=== PATIENT | female | born 1955 | race Caucasian/White ===

== ENCOUNTER → 2016-11-11 | Outpatient (CLI) | payer BC ==
[2016-11-11 07:28] LABS: EKG EKG PERFORMED
[2016-11-11 08:01] LABS: CH 28.8; CHCM 32.3; HCT 38.8 % (34.0-46.0); HDW 2.61; HGB 12.7 gm/dL (11.4-16.0); MCH 29.2 pg (25.0-35.0); MCHC 32.7 g/dL (31.0-37.0); MCV 89.6 fL (80.0-100.0); Mean Platelet Volume 7.1; RBC 4.34 m/uL (3.80-5.40); RDW 14.5 % (11.5-15.5); WBC 5.4 k/uL (3.8-10.6)
[2016-11-11 08:04] LABS: Appearance,Urine Cloudy (Clear); Bilirubin,Urine Negative (Negative); Glucose,Urine (UA) Negative (Negative); Ketones,Urine Negative (Negative); Leukocyte Esterase,Urine Negative (Negative); Mucus,Urine Rare /hpf; Nitrite,Urine Negative (Negative); Particle Count 8759; Protein,Urine Negative (Negative); RBC,Urine 1 /hpf (0-5); Specific Gravity,Urine 1.012 (1.001-1.035); UA Billing (MACRO vs. MICRO) MICRO; Urobilinogen,Urine <2.0 mg/dL (<2.0); WBC,Urine 3 /hpf (0-5)
[2016-11-11 08:06] LABS: Prothrombin Time 9.8 sec (9.0-12.0)
[2016-11-11 08:19] LABS: ALT 38 U/L (9-52); AST 33 U/L (14-36); Alkaline Phosphatase 89 U/L (38-126); Anion Gap 10 mmol/L; Blood Urea Nitrogen 12 mg/dL (7-17); Calcium 9.1 mg/dL (8.4-10.2); Carbon Dioxide 27 mmol/L (22-30); Chloride 107 mmol/L (98-107); Glucose 92 mg/dL (74-99); Non-African American GFR(MDRD) >60 (>60 ml/min/1.73 sqM); Potassium 4.5 mmol/L (3.5-5.1); Sodium 144 mmol/L (137-145); Total Bilirubin 0.4 mg/dL (0.2-1.3); Total Protein 7.2 g/dL (6.3-8.2)
== END | disposition home or self-care (01) ==
LOC: LABPAT 07:10
PROVIDERS: ATTEND Orthopaedic Surgery
DX: Z01.810 Encounter for preprocedural cardiovascular examination (principal); Z01.812 Encounter for preprocedural laboratory examination
CPT/HCPCS: 80053; 81001; 85027; 85610; 85730; 86850; 86900; 86901; 87070; 93005

== ENCOUNTER 2016-11-20 10:34 | Observation (INO) | payer BC ==
[2016-11-14 11:31] VITALS: BMI 30.7
[~2016-11-20 10:34] MED LIST: ACETAMINOPHEN TAB 500 MG TAB PO ONE; LIDOCAINE 1% 20 ML VIAL (10MG/ML) FOR IV START INTRADERMA PRN; MELOXICAM 7.5 MG TAB PO ONE; ONDANSETRON 4 MG/2 ML VIAL IVP ONE; TRANEXAMIC ACID 1,000 MG in SODIUM CHLORIDE 0.9% 100 ML IVPB ONE; ceFAZolin 2 GM in SODIUM CHLORIDE 0.9% 100 ML IVPB ONE; fentaNYL (PF) 50 MCG/ML 2 ML AMP IV PRN
[2016-11-20] MEDS ORDERED: DEXAMETHASONE SOD PHOSPHATE 10 MG/ML 1 ML VIAL IV STA (11:40)
[2016-11-20 11:41] LABS: Glucose,Whole Blood 116 mg/dL (75-99)
[2016-11-20] MEDS: LACTATED RINGERS 1,000 ML IV SCH (11:43)
[2016-11-20] MEDS ORDERED: MIDAZOLAM (PF) 1 MG/ML 5 ML VIAL IV STA ×2 (11:45)
[2016-11-20] MEDS ORDERED: MIDAZOLAM 2 MG/2 ML VIAL IV ONE ×2 (11:47→11:58)
[2016-11-20] MEDS ORDERED: ROPIVACAINE 246.25 MG, EPINEPHrine 0.5 MG, KETOROLAC 30 MG, cloNIDine HCL/PF 80 MCG, WA... MISCELLANE ONE ×5 (11:49)
[2016-11-20] MEDS ORDERED: hydrALAZINE HCL 20 MG/ML 1 ML VIAL IM STA ×2 (12:36→12:41)
[2016-11-20] MEDS ORDERED: LISINOPRIL 10 MG TAB PO STA (12:42)
[2016-11-20 12:53] VITALS: RESP 16
[2016-11-20] MEDS ORDERED: LACTATED RINGERS 1,000 ML IV ONE (12:53)
[2016-11-20 13:34] LABS: Basophils % (A) 1 %; CH 28.5; CHCM 31.5; Eosinophils % (A) 1 %; HCT 40.7 % (34.0-46.0); HDW 2.42; HGB 13.2 gm/dL (11.4-16.0); Luc # (Auto) 0.09; Luc % (Auto) 1; Lymphocytes # (A) 0.9 k/uL (1.0-4.8); Lymphocytes % (A) 11 %; MCH 29.4 pg (25.0-35.0); MCHC 32.3 g/dL (31.0-37.0); MCV 90.9 fL (80.0-100.0); Mean Platelet Volume 7.8; Monocytes # (A) 0.2 k/uL (0-1.0); Monocytes % (A) 2 %; Neutrophils # (A) 7.1 k/uL (1.3-7.7); Neutrophils % (A) 85 %; RBC 4.48 m/uL (3.80-5.40); RDW 14.3 % (11.5-15.5); WBC 8.3 k/uL (3.8-10.6); WBC (Perox) 8.71
[2016-11-20 13:37] LABS: ALT 32 U/L (9-52); AST 30 U/L (14-36); Alkaline Phosphatase 100 U/L (38-126); Anion Gap 11 mmol/L; Blood Urea Nitrogen 10 mg/dL (7-17); Carbon Dioxide 25 mmol/L (22-30); Chloride 106 mmol/L (98-107); Glucose 119 mg/dL (74-99); Non-African American GFR(MDRD) >60 (>60 ml/min/1.73 sqM); Sodium 142 mmol/L (137-145); Total Bilirubin 0.6 mg/dL (0.2-1.3); Total Protein 7.5 g/dL (6.3-8.2)
[2016-11-20] MEDS ORDERED: cloNIDine HCL 0.1 MG TAB PO PRN (14:16)
[2016-11-20] MEDS ORDERED: ALPRAZolam 0.25 MG TAB PO PRN (14:16)
[2016-11-20] MEDS ORDERED: TEMAZEPAM 15 MG CAP PO PRN (14:16)
[2016-11-20] MEDS ORDERED: hydrALAZINE HCL 20 MG/ML 1 ML VIAL IVP PRN (14:16)
[2016-11-20 14:50] LABS: Appearance,Urine Clear (Clear); Bilirubin,Urine Negative (Negative); Glucose,Urine (UA) Negative (Negative); Ketones,Urine 1+ (Negative); Leukocyte Esterase,Urine Negative (Negative); Nitrite,Urine Negative (Negative); Protein,Urine Negative (Negative); Specific Gravity,Urine 1.007 (1.001-1.035); UA Billing (MACRO vs. MICRO) CHEM; Urobilinogen,Urine <2.0 mg/dL (<2.0)
[2016-11-20] MEDS: METOPROLOL TARTRATE 25 MG TAB PO SCH ×2 (14:54→20:33)
[2016-11-20] MEDS: ASPIRIN 81 MG CHEW PO SCH (14:54)
--- NOTE | 2016-11-20 16:19 | HP ---
DATE OF ADMISSION: 11/20/2016 CHIEF COMPLAINT: Hypertension. HISTORY OF PRESENT ILLNESS: This 61-year-old woman with a past medical history of hypertension, hyperlipidemia, history of DJD, history of migraine, anxiety, being followed by Dr. Tellez in the outpatient setting, was slated to have hip arthroplasty today. In the preoperative suite the patient became diaphoretic. Patient also was found to have extremely elevated blood pressures, in the ranges of 200/108. After blood pressure medications, the blood pressure slightly improved to 176/103, and the patient has been admitted for further evaluation and treatment. There is no history of any fever, rigor, chills, no history of headache, loss of consciousness, seizures, no history of chest pain, palpitations, hematochezia, melena at this time. PAST MEDICAL HISTORY: 1. History of hypertension. 2. Hyperlipidemia. 3. History of DJD. 4. History of migraine. 5. Kidneys history. 6. Seasonal allergies. 7. History of anxiety. 8. DJD. MEDICATIONS PRIOR TO ADMISSION: 1. Tylenol 325 mg q.4 p.r.n. 2. Tylenol 650 q.6 p.r.n. 3. Coenzyme Q 100 mg p.o. daily. 4. [place]-3 fatty acids 1 p.o. daily. 5. Multivitamin 1 p.o. daily. 6. Aspirin 81 mg daily. 7. Zocor 40 mg p.o. daily. 8. Zestril 10 mg p.o. daily. ALLERGIES: PERFUME, MORPHINE. FAMILY HISTORY: History of myocardial infarction. Mother at the age of 62. SOCIAL HISTORY: No history of smoking. No history of alcohol intake. REVIEW OF SYSTEMS: ENT: No diminishing hearing. No diminished vision. CARDIOVASCULAR: As mentioned earlier. RESPIRATORY: As mentioned earlier. GI: No nausea. : No dysuria. NERVOUS SYSTEM: No numbness or weakness. ALLERGY/IMMUNOLOGY: No asthma, hayfever. MUSCULOSKELETAL: As mentioned earlier. HEMATOLOGY/ONCOLOGY: No history of anemia. ENDOCRINE: As mentioned earlier. CONSTITUTIONAL: As mentioned earlier. DERMATOLOGY: Negative. PSYCHIATRY: As mentioned earlier. PHYSICAL EXAMINATION: Patient is alert and oriented x3. The pulse is 97, blood pressure 178/102, respiration 16, temperature normal, pulse ox 98% on room air. HEENT: Conjunctivae normal. Oral mucosa moist. NECK: No jugular venous distention. No carotid bruit. No lymph node enlargement. CARDIOVASCULAR SYSTEM: S1, S2 muffled. No S3. No S4. RESPIRATORY SYSTEM: Breath sounds diminished at the bases. No rhonchi. No crackles. ABDOMEN: Soft, nontender. No mass palpable. LEGS: No edema. No swelling. NERVOUS SYSTEM: Higher functions as mentioned earlier. Moves all 4 limbs. No focal motor or sensory deficit. LYMPHATICS: No lymph node palpable in neck, axillae or groin. SKIN: No ulcer, rash, bleeding. Labs at this time show CBC within normal limits. Glucose 119. ASSESSMENT: 1. Accelerated hypertension with hypertensive urgency. 2. Increased random blood sugar. 3. History of essential hypertension. 4. Hyperlipidemia. 5. History of degenerative joint disease. 6. History of migraines. 7. History of kidney stones. 8. Seasonal allergies. 9. History of anxiety not otherwise specified. RECOMMENDATIONS AND DISCUSSION: In this 61-year-old woman who presented with multiple complex medical issues, we will monitor the patient closely, continue the current medication, continue symptomatic treatment. I recommend initiating beta blockers. Increase the dose of MEDHAT inhibitors. I would also recommend a cardiology consultation. Further recommendations to follow. Possible stress test. A copy of this dictation is being forwarded to Dr. Jeff Tellez, who is the primary physician. I would also recommend UA with micro.
[2016-11-20] MEDS: ACETAMINOPHEN TAB 325 MG TAB PO PRN (17:06)
[2016-11-20] MEDS: LISINOPRIL 10 MG TAB PO SCH (20:33)
[2016-11-21 06:41] LABS: Basophils % (A) 0 %; CH 28.5; CHCM 32.2; Eosinophils % (A) 0 %; HCT 41.5 % (34.0-46.0); HDW 2.42; HGB 13.2 gm/dL (11.4-16.0); Luc % (Auto) 1; Lymphocytes # (A) 1.7 k/uL (1.0-4.8); Lymphocytes % (A) 19 %; MCH 28.2 pg (25.0-35.0); MCHC 31.8 g/dL (31.0-37.0); MCV 88.9 fL (80.0-100.0); Mean Platelet Volume 7.7; Monocytes # (A) 0.5 k/uL (0-1.0); Monocytes % (A) 6 %; Neutrophils # (A) 6.5 k/uL (1.3-7.7); Neutrophils % (A) 74 %; RBC 4.67 m/uL (3.80-5.40); RDW 14.3 % (11.5-15.5); WBC 8.8 k/uL (3.8-10.6); WBC (Perox) 8.87
[2016-11-21 07:05] LABS: Anion Gap 14 mmol/L; Blood Urea Nitrogen 15 mg/dL (7-17); Calcium 9.3 mg/dL (8.4-10.2); Carbon Dioxide 23 mmol/L (22-30); Chloride 101 mmol/L (98-107); Glucose 96 mg/dL (74-99); Non-African American GFR(MDRD) >60 (>60 ml/min/1.73 sqM); Potassium 3.9 mmol/L (3.5-5.1); Sodium 138 mmol/L (137-145)
[2016-11-21] MEDS ORDERED: PANTOPRAZOLE 40 MG TABLET PO SCH (07:30)
[2016-11-21 07:52] VITALS: BP 141/84; PULSE 73; TEMP 98.2
[2016-11-21] MEDS: LISINOPRIL 10 MG TAB PO SCH (08:15)
[2016-11-21] MEDS: ASPIRIN 81 MG CHEW PO SCH (08:15)
[2016-11-21] MEDS: ACETAMINOPHEN TAB 325 MG TAB PO PRN (08:16)
[2016-11-21] MEDS: METOPROLOL TARTRATE 25 MG TAB PO SCH (08:16)
[2016-11-21] MEDS ORDERED: NON-FORMULARY DRUG (Omega-3 Fatty Acids/Fish Oil [Fish Oil 1,000 Mg Softgel] 1 EACH) PO SCH (09:00)
[2016-11-21] MEDS ORDERED: ATORVASTATIN 20 MG TAB PO SCH (09:00)
[2016-11-21] MEDS ORDERED: LISINOPRIL 10 MG TAB PO SCH (09:00)
[2016-11-21] MEDS ORDERED: MULTIVITAMINS, THERA 1 EACH TAB PO SCH (12:00)
[2016-11-21] MEDS: LACTATED RINGERS 1,000 ML IV SCH (12:31)
--- NOTE | 2016-11-22 08:15 | DS ---
DATE OF ADMISSION: 11/20/2016 DATE OF DISCHARGE: 11/21/2016 FINAL DIAGNOSES: 1. Accelerated hypertension and hypertensive urgency, present on admission. 2. Increased random blood sugar. 3. History of essential hypertension. 4. Hyperlipidemia. 5. History of degenerative joint disease. 6. History of migraines. 7. History of kidney stones. 8. Seasonal allergies. 9. History of anxiety, not otherwise specified. 10. History of planning for hip replacement. DISCHARGE DISPOSITION: The patient will be discharged in a stable condition with guarded prognosis. HISTORY OF PRESENT ILLNESS: This is a 61-year-old woman with a past medical history of multiple medical problems admitted with hypertension during a preop check. The blood pressure was in the ranges of 200/108. Patient was treated symptomatically, improved significantly. Basic labs are negative. On exam, vitals are stable. CARDIOVASCULAR SYSTEM: S1, S2. ABDOMEN: Soft. NERVOUS SYSTEM: No focal deficits. DISCHARGED ADVICE: 1. Diet is cardiac. 2. Activity limited until followup. 3. No added-salt diet. Medications will be: 1. Tylenol 650 q.6 p.r.n. 2. Xanax 0.25 t.i.d. p.r.n. for anxiety. 3. Aspirin 81 mg p.o. daily. 4. Zestril 10 mg p.o. b.i.d. 5. Lopressor 25 mg p.o. b.i.d. 6. Multivitamin 1 p.o. daily. 7. [place]-3 fatty acid 1 p.o. daily. 8. Zocor 40 mg p.o. daily. 9. Coenzyme Q 100 mg p.o. daily. Follow up with as recommended. [facility]
== END 2016-11-21 13:39 | disposition home or self-care (01) ==
LOC: 2ORMAIN 10:34 → INTOOBSV 10:34 → 3OBS 14:02
PROVIDERS: ADMIT Hospitalist; ATTEND Hospitalist
DX: I16.0 Hypertensive urgency (principal); Z53.09 Procedure and treatment not carried out because of other contraindication; I10 Essential (primary) hypertension; E78.5 Hyperlipidemia, unspecified; M19.90 Unspecified osteoarthritis, unspecified site; F41.9 Anxiety disorder, unspecified; Z87.442 Personal history of urinary calculi; G43.909 Migraine, unspecified, not intractable, without status migrainosus; J30.2 Other seasonal allergic rhinitis; Z79.82 Long term (current) use of aspirin; Z79.899 Other long term (current) drug therapy; Z82.49 Family history of ischemic heart disease and other diseases of the circulatory system
CPT/HCPCS: 96372; 96374; 96375; 93005; 80053; 80048; 84484; 85025 ×2; 81003; 80306; G0378 ×2; G0379; J2250; J0171; J0360; J1100; J2405; J1885; J2795; J0735; 86850; 86900; 86901

== ENCOUNTER → 2017-01-27 | Outpatient (CLI) | payer BC ==
[2017-01-27 07:59] LABS: Appearance,Urine Cloudy (Clear); Bacteria,Urine Rare /hpf; Bilirubin,Urine Negative (Negative); CHCM 32.1; Glucose,Urine (UA) Negative (Negative); HDW 2.38; HGB 12.8 gm/dL (11.4-16.0); Ketones,Urine Negative (Negative); Leukocyte Esterase,Urine Negative (Negative); MCH 28.4 pg (25.0-35.0); MCHC 31.2 g/dL (31.0-37.0); Mean Platelet Volume 8.4; Mucus,Urine Rare /hpf; Nitrite,Urine Negative (Negative); Particle Count 1727; Protein,Urine Negative (Negative); RBC,Urine 1 /hpf (0-5); RDW 15.4 % (11.5-15.5); Specific Gravity,Urine 1.012 (1.001-1.035); Squamous Epithelial Cell,Urine <1 /hpf (0-4); UA Billing (MACRO vs. MICRO) MICRO; Urobilinogen,Urine <2.0 mg/dL (<2.0); WBC 6.8 k/uL (3.8-10.6); WBC,Urine 5 /hpf (0-5)
[2017-01-27 08:05] LABS: Partial Thromboplastin Time 25.9 sec (22.0-30.0); Prothrombin Time 9.8 sec (9.0-12.0)
[2017-01-27 08:14] LABS: ALT 36 U/L (9-52); AST 26 U/L (14-36); Alkaline Phosphatase 87 U/L (38-126); Anion Gap 11 mmol/L; Blood Urea Nitrogen 10 mg/dL (7-17); Calcium 9.1 mg/dL (8.4-10.2); Carbon Dioxide 28 mmol/L (22-30); Chloride 105 mmol/L (98-107); Glucose 87 mg/dL (74-99); Non-African American GFR(MDRD) >60 (>60 ml/min/1.73 sqM); Potassium 4.4 mmol/L (3.5-5.1); Sodium 144 mmol/L (137-145); Total Bilirubin 0.6 mg/dL (0.2-1.3)
== END | disposition home or self-care (01) ==
LOC: LABPAT 07:06
PROVIDERS: ATTEND Orthopaedic Surgery
DX: Z01.818 Encounter for other preprocedural examination (principal); Z01.812 Encounter for preprocedural laboratory examination
CPT/HCPCS: 36415; 80053; 81001; 85027; 85610; 85730; 86850; 86900; 86901; 87070

== ENCOUNTER 2017-02-06 07:37 | Inpatient (IN) | payer BC ==
[~2017-02-06 07:37] MED LIST changes: +DEXAMETHASONE SOD PHOSPHATE 10 MG/ML 1 ML VIAL IV ONE; +HYDROmorphone 1 MG/ML 1 ML SYRINGE IVP PRN; -LIDOCAINE 1% 20 ML VIAL (10MG/ML) FOR IV START INTRADERMA PRN; -fentaNYL (PF) 50 MCG/ML 2 ML AMP IV PRN
[2017-02-06 08:39] VITALS: RESP 16
[2017-02-06] MEDS: LACTATED RINGERS 1,000 ML IV SCH ×2 (08:45→20:10)
[2017-02-06] MEDS ORDERED: LIDOCAINE 1% 20 ML VIAL (10MG/ML) FOR IV START INTRADERMA ONE (08:45)
[2017-02-06] MEDS ORDERED: ROPIVACAINE 246.25 MG, EPINEPHrine 0.5 MG, KETOROLAC 30 MG, cloNIDine HCL/PF 80 MCG, WA... MISCELLANE ONE ×5 (08:57)
[2017-02-06] MEDS ORDERED: SODIUM CHLORIDE 0.9% IRRIG 1,000 ML BTL IRRIGATION ONE (10:04)
[2017-02-06] MEDS ORDERED: SODIUM CHLORIDE 0.9% 100 ML BAG ONE (10:04)
[2017-02-06] MEDS ORDERED: HEPARIN SODIUM,PORCINE 10,000 UNIT/ML 1 ML VIAL ONE (10:04)
[2017-02-06] MEDS ORDERED: TRANEXAMIC ACID 1,000 MG/10 ML VIAL ONE (10:04)
[2017-02-06] MEDS ORDERED: MIDAZOLAM 2 MG/2 ML VIAL ONE (10:04)
[2017-02-06] MEDS ORDERED: PROPOFOL 10 MG/ML 20 ML VIAL IV ONE (10:04)
[2017-02-06] MEDS ORDERED: fentaNYL (PF) 50 MCG/ML 2 ML AMP ONE (10:04)
[2017-02-06] MEDS ORDERED: ceFAZolin 3,000 MG in SODIUM CHLORIDE 0.9% IRRIGATIO 3,000 ML IRRIGATION ONE (10:56)
[2017-02-06] MEDS ORDERED: LACTATED RINGERS 1,000 ML IV ONE (11:11)
--- NOTE | 2017-02-06 11:49 | P.OP ---
Date of Procedure: 02/06/17 Preoperative Diagnosis: Severe osteoarthritis right hip Postoperative Diagnosis: Severe osteoarthritis right hip Procedure(s) Performed: Right total hip arthroplasty with a direct anterior approach Implants: Wilhelm and nephew Polarstem size 1 standard Wilhelm & Nephew R3, 3 hole acetabular shell, 52 mm Wilhelm [employer] Nephew reflection 6.5 mm cancellus screw, 20 mm and 25 mm Wilhelm & Nephew R3, XLPE 20 acetabular liner Wilhelm & Nephew Oxinium femoral head 36 m, +0 All components were press-fit. The articulation is ceramic on polyethylene. Anesthesia: spinal Surgeon: Kd Carolina [employer] Pollution Compliance Inspector #1: Indigo Mcmanus Estimated Blood Loss (ml): 300 (118 returned with cell saver) Pathology: other (Femoral head) Condition: stable Disposition: PACU Indications for Procedure: After failure of conservative treatment we discussed the surgical and nonsurgical treatment options at length. Patient wishes to proceed with a total hip arthroplasty with a direct anterior approach. Complications specific to this procedure were discussed at length, including but not limited to infection, leg length discrepancy, dislocation, and nerve injury. Patient is aware of all these complications and informed consent was obtained Operative Findings: The operative findings are consistent with severe osteoarthritis of the right hip Description of Procedure: Patient was seen and evaluated in the preoperative area, consent was reviewed, and the surgical site was marked with a skin marker. Patient was then brought to the operating room and given prophylactic antibiotics intravenously. 1 g of Tranexamic acid was also given. A spinal anesthetic was administered by the anesthesia department. The patient was then placed on the [place] table with the bony prominences well-padded. The hip area was then prepped and draped in usual sterile fashion. A universal timeout was then performed, which confirmed the patient's name, surgical site, ALLERGIES, and procedure being performed. Next the incision site was located at 1 cm distal and 1 cm lateral to the anterior superior iliac spine. The skin and subcutaneous tissues were sharply incised. Incision was carefully dissected down to the fascia overlying the tensor fascia pancho muscle. This fascia was then incised in line with the incision. Next, using blunt finger dissection, the tensor fascia pancho muscle was dissected off its investing fascia. The muscle was then carefully retracted laterally with a cobra retractor over the lateral neck of the femur. Next, the circumflex vessels were identified and cauterized using the AquaMantis device. The anterior hip capsule was then exposed. The capsule was then opened and an inverted T fashion. Cobra retractors were then placed intracapsularly. The proximal femur was then visualized. The femoral neck was then osteotomized appropriate level above the lesser trochanter. Small amount of traction was placed with the [place] table. A small wedge of bone was then removed from the remaining femoral head. Next, using a corkscrew femoral head was easily removed from the acetabulum. On gross visual inspection, the femoral head had complete loss of articular cartilage in multiple periarticular osteophytes. Attention was then turned to the acetabulum. the acetabulum was exposed and any remaining labrum was excised. Sequential reaming of the acetabulum was performed using fluoroscopic guidance. When the appropriate size was reached, a trial was then placed. The position and fit of the trial was checked with fluoroscopy. The trial was then removed. Then, using fluoroscopic guidance, the final implant was impacted at 20 of anteversion and 40 of abduction, and fully seated in the acetabulum. 2 screws were then placed in the acetabulum. Again fluoroscopy was used to check position of the screws. Next, the liner was then impacted, with a 20 elevated liner located in the anterior superior quadrant. Component locking was confirmed. Attention was then directed to the femur. With the aid of the [place] table, the femur was externally rotated to approximately 130, extended, and abducted under the opposite leg. A side hook was then placed under the proximal femur, and the side hook elevator was used to elevate the proximal femur. Retractors were then placed. A capsular release was performed, as well as a release of the conjoined tendon, which afforded excellent visualization of the proximal femur. Next, a box osteotome was used to lateralize the proximal femur. A skiver hand was then used to locate the femoral canal. Sequential broaching was then performed with appropriate size which afforded excellent fixation in the proximal femur. A trial was then placed with appropriate head and neck, and the hip was gently reduced with the aid of the [place] table. Fluoroscopy was then used to check position of the components, as well as to ensure equal leg lengths. The hip was then gently dislocated and the trials were then removed. Final implants were then impacted and the hip was again reduced. Final fluoroscopic x-rays confirmed that the components were in anatomic position, as well as equal leg lengths. The hip was also taken through range of motion, and found to be stable. The hip was then copiously irrigated with antibiotic solution with pulsatile lavage. The hip was then irrigated with Irrisept solution. The soft tissues were then injected with a ropivacaine solution, which consisted of 246.25 mg of ropivacaine, 0.5 mg of epinephrine, 30 mg of Toradol, 80 g of clonidine, and 48.45 mL of sterile water, for a total of 100 mL of fluid injected. A second dose of 1 g of Tranexamic acid was also given. the fascia was then closed with 2-0 strata fix suture. The subcutaneous tissue was closed with 3-0 Vicryl. The subcuticular tissue was closed with 3-0 strata fix suture. The skin was then closed with Dermabond tape. The patient was then transferred to the recovery room in stable condition. The patient care nursing assistant JORGITO Salinas was required due to the complexity of surgery, and the need for skilled certified surgical assistant for positioning, draping, exposure, retraction, and closure of the wound.
[2017-02-06] MEDS ORDERED: DIAZEPAM 5 MG TAB PO PRN ×2 (11:59)
[2017-02-06] MEDS ORDERED: MAGNESIUM HYDROXIDE 2,400 MG/10 ML CUP PO PRN (11:59)
[2017-02-06] MEDS ORDERED: NALOXONE 0.4 MG/ML 1 ML VIAL IV PRN (11:59)
[2017-02-06] MEDS ORDERED: HYDROmorphone 1 MG/ML 1 ML SYRINGE IVP PRN ×3 (11:59)
[2017-02-06] MEDS ORDERED: ONDANSETRON 4 MG/2 ML VIAL IVP PRN (11:59)
[2017-02-06] MEDS ORDERED: hydrOXYzine PAMOATE 25 MG CAP PO PRN (11:59)
[2017-02-06] MEDS ORDERED: HYDROcodone/APAP 5-325MG 1 EACH TAB PO PRN (11:59)
--- NOTE | 2017-02-06 13:18 | XR ---
EXAMINATION TYPE: XR Hip Limited RT DATE OF EXAM: 02/06/2017 COMPARISON: NONE HISTORY: Postop right hip TECHNIQUE: One view submitted. FINDINGS: There is a prosthetic hip in near anatomic alignment. There is soft tissue edema and emphysema. IMPRESSION: 1. Postoperative change. Appears in near-anatomic alignment.
--- NOTE | 2017-02-06 14:21 | FL ---
Fluoroscopy HISTORY: Right hip placement 24 seconds fluoroscopy time supplied to the referring clinician. 2 intraoperative C-arm images docum ent the procedure. See dictated report from orthopedic surgery.
--- NOTE | 2017-02-06 14:21 | XR ---
Limited right hip HISTORY: Right hip replacement 2 intraoperative C-arm images document the procedure.
[2017-02-06] MEDS: ceFAZolin 2 GM in SODIUM CHLORIDE 0.9% 100 ML IVPB SCH (17:48)
[2017-02-06] MEDS: HYDROcodone/APAP 5-325MG 1 EACH TAB PO PRN (17:52)
[2017-02-06] MEDS: SODIUM CHLORIDE 0.9% 1,000 ML IV SCH ×2 (20:07→20:09)
[2017-02-06] MEDS: ASPIRIN 325 MG TAB PO SCH (20:08)
[2017-02-06] MEDS: SENNOSIDES-DOCUSATE SODIUM 1 EACH TAB PO SCH (20:08)
[2017-02-06] MEDS ORDERED: LACTATED RINGERS 500 ML IV SCH (22:00)
[2017-02-06] MEDS ORDERED: LACTATED RINGERS 250 ML IV SCH (23:45)
[2017-02-07] MEDS: ceFAZolin 2 GM in SODIUM CHLORIDE 0.9% 100 ML IVPB SCH (01:22)
[2017-02-07 07:44] LABS: Basophils % (A) 0 %; CH 29.3; CHCM 31.9; Eosinophils % (A) 0 %; HCT 32.9 % (34.0-46.0); HDW 2.37; HGB 10.4 gm/dL (11.4-16.0); Luc # (Auto) 0.09; Luc % (Auto) 1; Lymphocytes # (A) 2.2 k/uL (1.0-4.8); Lymphocytes % (A) 22 %; MCH 29.2 pg (25.0-35.0); MCHC 31.7 g/dL (31.0-37.0); MCV 92.3 fL (80.0-100.0); Monocytes # (A) 0.5 k/uL (0-1.0); Monocytes % (A) 5 %; Neutrophils # (A) 7.4 k/uL (1.3-7.7); Neutrophils % (A) 72 %; RBC 3.57 m/uL (3.80-5.40); RDW 15.4 % (11.5-15.5); WBC 10.2 k/uL (3.8-10.6); WBC (Perox) 10.79
[2017-02-07] MEDS: ASPIRIN 325 MG TAB PO SCH ×2 (07:52→20:59)
[2017-02-07] MEDS: HYDROcodone/APAP 5-325MG 1 EACH TAB PO PRN (07:53)
[2017-02-07] MEDS: MELOXICAM 7.5 MG TAB PO SCH (07:53)
--- NOTE | 2017-02-07 09:28 | P.DS ---
Providers Date of admission: 02/06/17 08:08 Expected date of discharge: 02/07/17 Attending physician: Kd Carolina Consults: 02/06/17 11:59 Consult Physician Routine Consulting Provider: Kirk Sun Consult Reason/Comments: medical management Do you want consulting provider notified?: Yes Primary care physician: Stated None - Discharge Diagnosis(es) (1) S/P total hip arthroplasty Current Visit: Yes Status: Acute (2) Primary osteoarthritis of right hip Current Visit: Yes Status: Acute Hospital Course: This is a 61-year-old female with known history of degenerative arthritis of the right hip. The patient presents for evaluation. After discussion and consideration patient elects to proceed with total hip arthroplasty. The patient is seen preoperatively by Dr. Carolina and cleared for surgery. Patient is admitted to [facility] on 02/06/2017 for total hip arthroplasty. The procedures performed without complication or sequelae. The patient is doing well postoperatively. Labs and vital signs are stable on day of discharge. On day of discharge patient's hip incision is healing well. There is minimal erythema. There is no drainage noted at this time. There is minimal soft tissue swelling to the hip and thigh. Patient has full foot and ankle motion without difficulty or pain. Neurovascular status to the right lower extremity is intact. Patient is discharged home in good condition.Please see med rec for accurate list of home medications. Plan - Discharge Summary New Discharge Prescriptions: New Aspirin 325 mg PO BID #60 tab HYDROcodone/APAP 5-325MG [Ollie 5-325] 1 - 2 tab PO Q4-6H PRN #90 tab PRN Reason: Pain Sennosides-Docusate Sodium [Senokot-S] 1 tab PO BID #60 tablet No Action Simvastatin [Zocor] 40 mg PO HS [place]-3 Fatty Acids/Fish Oil [Fish Oil 1,000 mg Softgel] 1 cap PO DAILY #0 Multivitamins, Thera [Multivitamin (formulary)] 1 tab PO DAILY Ubidecarenone [Co Q-10] 100 mg PO DAILY Acetaminophen [Tylenol Arthritis] 650 mg PO Q6H PRN PRN Reason: Pain Acetaminophen [Tylenol] 325 mg PO Q4H ALPRAZolam [Xanax] 0.25 mg PO TID PRN #20 tab PRN Reason: Anxiety Lisinopril [Zestril] 10 mg PO BID #60 tab Metoprolol Tartrate [Lopressor] 25 mg PO BID #60 tab Calcium Carbonate [Tums] 1 - 2 tab PO DAILY Fluticasone Propionate 1 spray NASAL DAILY FLUoxetine HCL [PROzac] 10 mg PO QAM Optic A 1 drop BOTH EYES DIRECTED Aspirin [Adult Low Dose Aspirin EC] 81 mg PO DAILY Discharge Medication List Simvastatin [Zocor] 40 mg PO HS 03/19/14 [History] Multivitamins, Thera [Multivitamin (formulary)] 1 tab PO DAILY 12/10/15 [History ] [place]-3 Fatty Acids/Fish Oil [Fish Oil 1,000 mg Softgel] 1 cap PO DAILY #0 04/16 [History] Acetaminophen [Tylenol Arthritis] 650 mg PO Q6H PRN 11/14/16 [History] Ubidecarenone [Co Q-10] 100 mg PO DAILY 11/14/16 [History] Acetaminophen [Tylenol] 325 mg PO Q4H 11/20/16 [History] ALPRAZolam [Xanax] 0.25 mg PO TID PRN #20 tab 11/21/16 [Rx] Lisinopril [Zestril] 10 mg PO BID #60 tab 11/21/16 [Rx] Metoprolol Tartrate [Lopressor] 25 mg PO BID #60 tab 11/21/16 [Rx] Calcium Carbonate [Tums] 1 - 2 tab PO DAILY 02/05/17 [History] FLUoxetine HCL [PROzac] 10 mg PO QAM 02/05/17 [History] Fluticasone Propionate 1 spray NASAL DAILY 02/05/17 [History] Optic A 1 drop BOTH EYES DIRECTED 02/05/17 [History] Aspirin [Adult Low Dose Aspirin EC] 81 mg PO DAILY 02/06/17 [History] Aspirin 325 mg PO BID #60 tab 02/07/17 [Rx] HYDROcodone/APAP 5-325MG [Ollie 5-325] 1 - 2 tab PO Q4-6H PRN #90 tab 02/07/17 [ Rx] Sennosides-Docusate Sodium [Senokot-S] 1 tab PO BID #60 tablet 02/07/17 [Rx] Follow up Appointment(s)/Referral(s): Kd Carolina DO [Doctor of Osteopathic Medicine] - 2 Weeks Activity/Diet/Wound Care/Special Instructions: Weightbearing as tolerated with walker May shower after 2 days if no drainage from the incision Follow-up with [facility] in 2 weeks with any questions or concerns Discharge Disposition: HOME WITH HOME HEALTH SERVICES
--- NOTE | 2017-02-07 16:22 | P.CONS ---
History of Present Illness - Reason for Consult Consult date: 02/07/17 Medical management Requesting physician: Kd Carolina - Chief Complaint Right hip surgery - History of Present Illness Consultation: This is a very pleasant 61-year-old patient of Dr. Tellez was undergone a right total hip arthroplasty. Postprocedure sitting on the chair comfortable. No chest pain or short of breath no nausea morning. Denies any cardiac history. Patient's chronic stable medical conditions include GERD, hypertension , hyperlipidemia, prostatitis, anxiety. Did tolerate his breakfast. GEN.: None EYES: None HEENT: None NECK: None RESPIRATORY: None CARDIOVASCULAR: None GASTROINTESTINAL: Heartburn] GENITOURINARY: None MUSCULOSKELETAL: Pain in the joints LYMPHATICS: None HEMATOLOGICAL: None PSYCHIATRY: None NEUROLOGICAL: None Past medical history: GERD, hypertension, hyperlipidemia, osteoarthritis, anxiety. Past medical history: GERD, hypertension, hyperlipidemia, [place] arthritis, anxiety, Past surgical history: Left total hip arthroplasty, colonoscopy Home medications: reviewed in the computer ALLERGIES: Perfume, morphine VITAL SIGNS: 98 2, 82, 16, 1:30/74, 97% room air GENERAL: Average built, sitting up, comfortable. EYES: Pupils equal. Conjunctiva normal. HEENT: External appearance of nose and ears normal, oral cavity grossly normal. NECK: JVD not raised; masses not palpable. HEART: First and second heart sounds are normal; no edema. LUNGS: Respiratory rate normal; clear to auscultation. ABDOMEN: Soft, nontender, liver spleen not palpable, no masses palpable. LYMPHATICS: No lymph nodes palpable in the axilla and neck. PSYCH: Alert and oriented x3; mood and affect normal. NEUROLOGICAL: Cranial nerves grossly intact; no facial asymmetry, power and sensation grossly intact. Musculoskeletal: Dressing over the right hip Investigation: White count 10.2, hemoglobin 10.4 Hemoglobin was 12.8 down 01/27/2017 Assessment: Right total hip arthroplasty -GERD -Essential hypertension -Hyperlipidemia -Primary osteoarthritis multiple joints -Anxiety not otherwise specified -Acute postop blood loss anemia as expected from surgery Plan: Home medications are resumed. Patient getting aspirin 325 mg by mouth twice a day for DT prophylaxis. Care was discussed with the patient. Patient should follow with Dr. Tellez upon discharge. Thank you Dr. Carolina Past Medical History Past Medical History: GERD/Reflux, Hyperlipidemia, Hypertension, Osteoarthritis (OA) Additional Past Medical History / Comment(s): SURGERY THAT WAS SCHEDULED FOR , WAS CANCELLED DUE TO HIGH BP 200/100 (PER PATIENT). HX: migraines, constipation, hx kidney stones, sinus infection, recent ear infection-rt ear tx with ABX, arthritis in low back. History of Any Multi-Drug Resistant Organisms: None Reported Past Surgical History: Joint Replacement Additional Past Surgical History / Comment(s): 12/13/15 Total L hip arthroplasty -anterior approach. Other surgical hx; colonoscopy Past Anesthesia/Blood Transfusion Reactions: No Reported Reaction Past Psychological History: Anxiety Additional Psychological History / Comment(s): Pt states she lives alone. She uses a cane occasionally. She drives. Smoking Status: Never smoker Past Alcohol Use History: None Reported Past Drug Use History: None Reported - Past Family History Mother Family Medical History: Myocardial Infarction (WA) Additional Family Medical History / Comment(s): Mother of a WA at the age of 62 yrs. Father Family Medical History: Myocardial Infarction ([place]) Additional Family Medical History / Comment(s): Father of a WA at the age of 69yrs. Medications and Allergies Home Medications Medication Instructions Recorded Confirmed Type Simvastatin [Zocor] 40 mg PO HS 03/19/14 02/06/17 History Multivitamins, Thera [Multivitamin 1 tab PO DAILY 12/10/15 02/06/17 History (formulary)] [place]-3 Fatty Acids/Fish Oil [Fish 1 cap PO DAILY #0 12/10/15 02/06/17 History Oil 1,000 mg Softgel] Acetaminophen [Tylenol Arthritis] 650 mg PO Q6H PRN 11/14/16 02/06/17 History Ubidecarenone [Co Q-10] 100 mg PO DAILY 11/14/16 02/06/17 History Acetaminophen [Tylenol] 325 mg PO Q4H 11/20/16 02/06/17 History Calcium Carbonate [Tums] 1 - 2 tab PO DAILY 02/05/17 02/06/17 History FLUoxetine HCL [PROzac] 10 mg PO QAM 02/05/17 02/06/17 History Fluticasone Propionate 1 spray NASAL DAILY 02/05/17 02/06/17 History Optic A 1 drop BOTH EYES DIRECTED 02/05/17 02/06/17 History Allergies Allergy/AdvReac Type Severity Reaction Status Date / Time perfume Allergy Rash/Hives Verified 02/05/17 08:23 morphine AdvReac Itching Verified 02/05/17 08:23 Results CBC & Chem 7: 02/07/17 06:47
[2017-02-07] MEDS ORDERED: ACETAMINOPHEN TAB 325 MG TAB PO PRN (20:54)
[2017-02-07] MEDS: SENNOSIDES-DOCUSATE SODIUM 1 EACH TAB PO SCH (20:59)
[2017-02-07] MEDS: SODIUM CHLORIDE 0.9% 1,000 ML IV SCH (21:45)
[2017-02-08] MEDS: HYDROcodone/APAP 5-325MG 1 EACH TAB PO PRN (03:33)
[2017-02-08] MEDS: LACTATED RINGERS 1,000 ML IV SCH (04:55)
[2017-02-08 07:35] VITALS: BP 133/78; TEMP 98.5
[2017-02-08] MEDS: ASPIRIN 325 MG TAB PO SCH (08:38)
[2017-02-08] MEDS: MELOXICAM 7.5 MG TAB PO SCH (08:38)
[2017-02-08 15:21] VITALS: PULSE 87
--- NOTE | 2017-02-08 22:20 | PN ---
DATE OF SERVICE: 02/08/2017 PRESENTING COMPLAINT: Right hip surgery. INTERVAL HISTORY: Patient is status post right hip surgery, doing well. No chest pain or shortness of breath. Did work with therapy. Review of systems done for constitutional, cardiovascular, GI, pulmonary, musculoskeletal; relevant findings as above. Current medications are reviewed. On examination, temperature 98.5, pulse 96, respiration 16, blood pressure 133/ 78, pulse ox 95% on room air. GENERAL APPEARANCE: Sitting up on a chair. Comfortable. EYES: Pupils equal. Conjunctivae normal. NECK: JVD not raised. Mass not palpable. RESPIRATORY: Effort normal. LUNGS: Fair air entry. CARDIOVASCULAR: First and second sounds normal. No edema. ABDOMEN: Soft, non-tender. Liver and spleen not palpable. PSYCHIATRY: Alert and oriented x3. Mood and affect normal. INVESTIGATIONS: No blood work from today. ASSESSMENT: 1. Right total hip arthroplasty. 2. Gastroesophageal reflux disease. 3. Essential hypertension. 4. Hyperlipidemia. 5. Primary osteoarthritis of multiple joints. 6. Anxiety not otherwise specified. 7. Acute postoperative blood loss anemia, as expected from surgery. PLAN: Continue current medication and treatment plan. Care was discussed with the patient. Thank you, Dr. Carolina. [facility]
== END 2017-02-08 16:30 | disposition home health service (06) | DRG 470 ==
LOC: 2ORMAIN 08:08 → 3SUR 13:13
PROVIDERS: ADMIT Orthopaedic Surgery; ATTEND Orthopaedic Surgery
PROC: 0SR904A Replacement of Right Hip Joint with Ceramic on Polyethylene Synthetic Substitute, Uncemented, Open Approach (ICD-10-PCS; principal; 2017-02-06 09:45)
DX: M16.11 Unilateral primary osteoarthritis, right hip (principal); D62 Acute posthemorrhagic anemia; I95.9 Hypotension, unspecified; I10 Essential (primary) hypertension; E78.5 Hyperlipidemia, unspecified; F41.9 Anxiety disorder, unspecified; K21.9 Gastro-esophageal reflux disease without esophagitis; G43.909 Migraine, unspecified, not intractable, without status migrainosus; E66.9 Obesity, unspecified; Z68.30 Body mass index [BMI] 30.0-30.9, adult; Z79.82 Long term (current) use of aspirin; Z79.899 Other long term (current) drug therapy; Z88.5 Allergy status to narcotic agent; Z96.642 Presence of left artificial hip joint; Z82.49 Family history of ischemic heart disease and other diseases of the circulatory system
CPT/HCPCS: 73501; 85025; 86850; 86891; 86900; 86901; 88300

== ENCOUNTER → 2017-05-21 | Outpatient (CLI) | payer BC ==
--- NOTE | 2017-05-23 09:22 | MM ---
Reason for exam: screening (asymptomatic). Last mammogram was performed 1 year ago. History: Patient is postmenopausal and is nulliparous. Family history of breast cancer in aunt at age 50. Physical Findings: A clinical breast exam by your physician is recommended on an annual basis and results should be correlated with mammographic findings. MG Screening Mammo w CAD Bilateral CC and MLO view(s) were taken. Prior study comparison: May 19, 2016, bilateral MG screening mammo w CAD. May 08, 2015, bilateral MG screening mammo w CAD. The breast tissue is heterogeneously dense. This may lower the sensitivity of mammography. Finding: There are typically benign calcifications in both breasts, overall stable. No suspicious abnormality. ASSESSMENT: Benign, BI-RAD 2 RECOMMENDATION: Routine screening mammogram of both breasts in 1 year.
== END | disposition home or self-care (01) ==
LOC: RADMAMWWP 16:47
PROVIDERS: ATTEND Pediatrics
DX: Z12.31 Encounter for screening mammogram for malignant neoplasm of breast (principal)

== ENCOUNTER → 2017-12-10 | Outpatient (CLI) | payer BC ==
--- NOTE | 2017-12-10 14:28 | US ---
EXAMINATION TYPE: US carotid duplex BILAT DATE OF EXAM: 12/10/2017 COMPARISON: NONE CLINICAL HISTORY: R40.0 SLEEPINESS,R55 SYNCOPY. Daytime sleepiness, lightheaded EXAM MEASUREMENTS: RIGHT: Peak Systolic Velocity (PSV) cm/sec ----- Right CCA: 79.8 ----- Right ICA: 111.7 ----- Right ECA: 78.7 ICA/CCA ratio: 1.4 RIGHT: End Diastole cm/sec ----- Right CCA: 17.1 ----- Right ICA: 33.6 ----- Right ECA: 9.5 LEFT: Peak Systolic Velocity (PSV) cm/sec ----- Left CCA: 76.2 ----- Left ICA: 131.8 ----- Left ECA: 86.4 ICA/CCA ratio: 1.7 LEFT: End Diastole cm/sec ----- Left CCA: 24.8 ----- Left ICA: 43.0 ----- Left ECA: 12.8 VERTEBRALS (direction of flow): Right Vertebral: Antegrade Left Vertebral: Antegrade Rhythm: Normal Mild plaque bilateral bifurcations. Tortuous left ICA. IMPRESSION: 1. Atheromatous plaquing. There is mild elevation of the left internal carotid artery velocity compat ible with a stenosis between 50 and 69%. Criteria for Assigning % of Stenosis / Diameter reduction (Estimation based on the indirect measurements of the internal carotid artery velocities (ICA PSV). 1. Normal (no stenosis)=ICA PSV < 125 cm/s: ratio < 2.0: ICA EDV<40 cm/s. 2. Less than 50% stenosis=ICA PSV < 125 cm/s: ratio < 2.0: ICA EDV<40 cm/s. 3. 50 to 69% stenosis=ICA PSV of 125 to 230 cm/s: ratio 2.0 ? 4.0: ICA EDV 40-100 cm/s. 4. Greater than 70% stenosis to near occlusion= ICA PSV > 230 cm/s: ratio > 4.0: ICA EDV > 100 cm/s. 5. Near occlusion= ICA PSV velocities may be low or undetectable: variable ratio and ICA EDV. 6. Total occlusion=unable to detect flow.
--- NOTE | 2017-12-11 10:28 | ECHOF ---
Referral Reason:R55 Syncope R40.0 Daytime Tiredness MEASUREMENTS -------- HEIGHT: 144.8 cm WEIGHT: 68.0 kg BP: RVIDd: 2.6 cm (< 3.3) IVSd: 0.9 cm (0.6 - 1.1) LVIDd: 4.0 cm (3.9 - 5.3) LVPWd: 0.9 cm (0.6 - 1.1) IVSs: 1.1 cm LVIDs: 2.9 cm LVPWs: 1.3 cm LAESV Index (A-L): 30.64 ml/m Ao Diam: 2.9 cm (2.0 - 3.7) AV Cusp: 1.7 cm (1.5 - 2.6) LA Diam: 3.9 cm (2.7 - 3.8) EPSS: 0.5 cm MV E Josh: 0.93 m/s MV DecT: 251 ms MV A Josh: 0.92 m/s MV E/A Ratio: 1.01 RAP: 5.00 mmHg RVSP: 37.45 mmHg MV EF SLOPE: 165.70 mm/s (70 - 150) MV EXCURSION: 2.17 cm (> 18.000) FINDINGS -------- Sinus rhythm. This was a technically good study. The left ventricular size is normal. Left ventricular wall thickness is normal. Overall left vent ricular systolic function is normal with, an EF between 55 - 60 %. The right ventricle is normal in size and function. LA is midly dilated 29-33ml/m2. RA appears enlarged. Aortic valve is trileaflet and is mildly thickened. There is no evidence of aortic regurgitation. There is no evidence of aortic stenosis. The mitral valve leaflets are mildly thickened. There is trace to mild mitral regurgitation. Mild tricuspid regurgitation present. There is borderline pulmonary hypertension. The right ventr icular systolic pressure, as measured by Doppler, is 37.45mmHg. Trace/mild (physiologic) pulmonic regurgitation. The aortic root size is normal. Normal inferior vena cava with normal inspiratory collapse consistent with estimated right atrial pre ssure of 5 mmHg. There is no pericardial effusion. CONCLUSIONS -------- 1. Sinus rhythm. 2. This was a technically good study. 3. The left ventricular size is normal. 4. Left ventricular wall thickness is normal. 5. Overall left ventricular systolic function is normal with, an EF between 55 - 60 %. 6. LA is midly dilated 29-33ml/m2. 7. RA appears enlarged. 8. Aortic valve is trileaflet and is mildly thickened. 9. The mitral valve leaflets are mildly thickened. 10. There is trace to mild mitral regurgitation. 11. Mild tricuspid regurgitation present. 12. There is borderline pulmonary hypertension. 13. The right ventricular systolic pressure, as measured by Doppler, is 37.45mmHg. 14. Trace/mild (physiologic) pulmonic regurgitation. 15. The aortic root size is normal. 16. There is no pericardial effusion. CSO: Denys Hernandez RDCS
== END | disposition home or self-care (01) ==
LOC: RADUSWWP 13:21
PROVIDERS: ATTEND Pediatrics
DX: I65.23 Occlusion and stenosis of bilateral carotid arteries (principal); R40.0 Somnolence
CPT/HCPCS: 93306; 93880

== ENCOUNTER → 2018-01-09 | Outpatient (CLI) | payer BC ==
--- NOTE | 2018-01-09 18:38 | CONS ---
CONSULTATION DATE OF SERVICE: 01/09/2018 This patient is a 62-year-old lady who has been evaluated in the sleep center for possible obstructive sleep apnea-hypopnea syndrome and significant excessive daytime sleepiness. HISTORY OF PRESENT ILLNESS/SLEEP-WAKE EVALUATION: The patient had a sleep study about 10 years ago but never followed up on the results of the sleep study. She was invited to an obstructive sleep apnea support group, so possibly the result of her sleep study was positive at that time. At the present time, her sleep schedule on working days is from 10:30 p.m. until 4:30 to 4:45 a.m., and on weekends from around 11 p.m. until 9 a.m. Sometimes she has problems with falling asleep, although no TV in bedroom. During sleep, she usually sleeps on the side and stomach positions. She snores. She is usually able to sleep through the night without awakenings, according to the patient, and she needs to use the restroom only in the morning. [place] Sleepiness Scale is significantly increased at 16. She may take one nap after work. She does feel refreshed after naps and sometimes sees vivid dreams after naps. She may have a positive history of seeing dreams right after falling asleep, which may represent hypnagogic hallucinations. She has positive history of weakness in the muscles during strong emotions; sometimes weakness in her left arm when she is excited. No history of sleep paralysis. PAST MEDICAL HISTORY: 1. Hypertension. 2. Hyperlipidemia. 3. Anxiety. 4. Sinusitis. 5. Allergy. 6. Acid reflux. PAST SURGICAL HISTORY: Bilateral hip replacement. MEDICATIONS: 1. Fluoxetine. 2. Metoprolol. 3. Simvastatin. 4. Lisinopril. 5. Baby aspirin. 6. Antacid. 7. Acetaminophen. SOCIAL HISTORY: Negative for smoking. Alcohol consumption: quit at age of 30. FAMILY HISTORY: Hypertension, heart problems, hyperlipidemia, stroke, arthritis, sinus headaches, emphysema, snoring, acid reflux, mental illness. REVIEW OF SYSTEMS: Significant sleepiness during the day. PHYSICAL EXAMINATION: GENERAL A pleasant 62-year-old lady without distress. VITAL SIGNS: BP 118/64, HR 67, RR 20, height 4 feet 10 inches. Weight 149, BMI 31.1, temperature 98.0, oxygen saturation at room air 98% HEENT: PERRLA, EOMI. Evaluation of oropharynx showed tongue protrudes midline; moderately low position of soft palate. Slight restriction of nasal breathing. NECK: Supple. No JVD. Thyroid is not palpable. LUNGS: Clear to percussion and to auscultation. Good air exchange. No wheezing or rhonchi. HEART: S1, S2 regular. No murmurs, gallops or rubs. ABDOMEN: Slightly obese. EXTREMITIES : No clubbing or cyanosis. ACID CONDENSER: Awake, alert, and oriented X3. Cranial nerves 2 to 7 intact. There is no fasciculation or atrophy. noted. No focal deficits observed. IMPRESSION: 1. Significant excessive daytime sleepiness. [place] Sleepiness Scale increased to 16. Positive history of hypnagogic hallucinations; questionable history of cataplexy as a reaction to strong emotions. Differential diagnosis includes narcolepsy. 2. History of obstructive sleep apnea in the past, more than 10 years ago. Snoring, moderately low position of soft palate; possible obstructive sleep apnea-hypopnea syndrome. 3. Hypertension. 4. Hyperlipidemia. 5. Anxiety. 6. Sinusitis. 7. Allergy. 8. Acid reflux. 9. Status post bilateral hip replacement. PLAN: 1. Polysomnography for evaluation of patient's breathing during sleep. 2. CPAP/BiPAP titration if sleep study confirms obstructive sleep apnea-hypopnea syndrome. 3. Preferable position during sleep on the side. 4. No driving if patient feels any sleepiness. Patient is aware of civil and criminal liability for unsafe driving. 5. I will see patient for follow-up visit to explain results of testing and following plan. 6. Possible sleep latency sleep latency test if sleep study is negative for obstructive sleep apnea-hypopnea syndrome. Thank you very much for referring this patient for consultation. Sincerely, Tommie Valdez MD, PhD, FAASM Diplomat of [place] [employer] [place] [employer] [facility] [place] MMODL / IJN: [id number] /
== END | disposition home or self-care (01) ==
LOC: SLEEP 15:51
PROVIDERS: ATTEND Internal Medicine
DX: G47.10 Hypersomnia, unspecified (principal); R06.83 Snoring; I10 Essential (primary) hypertension; E78.5 Hyperlipidemia, unspecified; F41.9 Anxiety disorder, unspecified; J32.9 Chronic sinusitis, unspecified; Z88.9 Allergy status to unspecified drugs, medicaments and biological substances; K21.9 Gastro-esophageal reflux disease without esophagitis; Z96.643 Presence of artificial hip joint, bilateral; Z99.89 Dependence on other enabling machines and devices; Z79.899 Other long term (current) drug therapy; Z79.82 Long term (current) use of aspirin
CPT/HCPCS: 99211

== ENCOUNTER → 2018-03-05 | Outpatient (CLI) | payer BC ==
[2018-03-05 10:45] LABS: Blood Urea Nitrogen 10 mg/dL (7-17)
--- NOTE | 2018-03-05 14:40 | MR ---
EXAMINATION TYPE: MR brain wo/w con DATE OF EXAM: 03/05/2018 COMPARISON: None HISTORY: Cranial nerve disorder CONTRAST: Performed utilizing 7 mL intravenous Gadavist gadolinium contrast. TECHNIQUE: Multiplanar, multiecho imaging on a 3.0 Miryam magnet is performed through the brain. Stud y is performed within 24 hours of arrival to the hospital. The craniovertebral junction is normal. The pituitary is normal. Diffusion-weighted imaging is performed. No abnormal hyperintensity is present to suggest an acute i ntracranial infarct or acute ischemic change. No suspicious signal abnormality is evident. Ventricles and sulci are appropriate for the patient age. IMPRESSIONS: 1. Essentially normal pre and postcontrast MRI brain
== END | disposition home or self-care (01) ==
LOC: RADMRIMAIN 09:52
PROVIDERS: ATTEND Physician Assistant
DX: H53.2 Diplopia (principal); H91.90 Unspecified hearing loss, unspecified ear; R40.4 Transient alteration of awareness
CPT/HCPCS: 36415; 70553; 82565; 84520

== ENCOUNTER → 2018-06-12 | Outpatient (CLI) | payer BC ==
--- NOTE | 2018-06-13 10:58 | MM ---
Reason for exam: screening (asymptomatic). Last mammogram was performed 1 year and 1 month ago. History: Patient is postmenopausal and is nulliparous. Family history of breast cancer in aunt at age 50. Physical Findings: A clinical breast exam by your physician is recommended on an annual basis and results should be correlated with mammographic findings. MG Screening Mammo w CAD Bilateral CC and MLO view(s) were taken. Prior study comparison: May 21, 2017, bilateral MG screening mammo w CAD. May 19, 2016, bilateral MG screening mammo w CAD. The breast tissue is heterogeneously dense. This may lower the sensitivity of mammography. No significant changes when compared with prior studies. ASSESSMENT: Benign, BI-RAD 2 RECOMMENDATION: Routine screening mammogram of both breasts in 1 year.
== END | disposition home or self-care (01) ==
LOC: RADMAMWWP 16:37
PROVIDERS: ATTEND Pediatrics
DX: Z12.31 Encounter for screening mammogram for malignant neoplasm of breast (principal)
CPT/HCPCS: 77067

== ENCOUNTER → 2019-06-27 | Outpatient (CLI) | payer OTHER ==
--- NOTE | 2019-06-30 10:11 | MM ---
Reason for exam: screening (asymptomatic). Last mammogram was performed 1 year ago. History: Patient is postmenopausal and is nulliparous. Family history of breast cancer in aunt at age 50. Physical Findings: A clinical breast exam by your physician is recommended on an annual basis and results should be correlated with mammographic findings. MG Screening Mammo w CAD Bilateral CC and MLO view(s) were taken. Prior study comparison: June 12, 2018, bilateral MG screening mammo w CAD. May 21, 2017, bilateral MG screening mammo w CAD. The breast tissue is heterogeneously dense. This may lower the sensitivity of mammography. Benign appearing bilateral calcifications. No suspicious abnormality. No significant changes when compared with prior studies. ASSESSMENT: Benign, BI-RAD 2 RECOMMENDATION: Routine screening mammogram of both breasts in 1 year.
== END | disposition home or self-care (01) ==
LOC: RADMAMWWP 16:37
PROVIDERS: ATTEND Pediatrics
DX: Z12.31 Encounter for screening mammogram for malignant neoplasm of breast (principal)
CPT/HCPCS: 77067

== ENCOUNTER → 2021-03-22 | Outpatient (CLI) | payer OTHER, MEDICARE ==
--- NOTE | 2021-03-22 15:53 | XR ---
EXAMINATION TYPE: XR clavicle bilateral DATE OF EXAM: 03/22/2021 COMPARISON: NONE HISTORY: Abnormal clinical exam. TECHNIQUE: 2 views of each clavicle are submitted. FINDINGS: There appears to be asymmetric prominence of the medial portion of the left clavicle relati ve to the right. Hypertrophic arthropathy noted bilaterally with no acute fracture or dislocation. IMPRESSION: 1. Asymmetric prominence of the medial margin the left clavicle. Intraosseous lesion not excluded rec ommend CT scan of the chest for further evaluation with attention to the bilateral clavicle.
--- NOTE | 2021-03-24 13:34 | MM ---
Reason for exam: screening (asymptomatic). Last mammogram was performed 1 year and 9 months ago. History: Patient is postmenopausal and is nulliparous. Family history of breast cancer in aunt at age 50. Physical Findings: A clinical breast exam by your physician is recommended on an annual basis and results should be correlated with mammographic findings. MG Screening Mammo w CAD Bilateral CC and MLO view(s) were taken. Prior study comparison: June 27, 2019, bilateral MG screening mammo w CAD. June 12, 2018, bilateral MG screening mammo w CAD. There are scattered fibroglandular densities. Benign bilateral secretory and oil cyst calcifications. No significant changes when compared with prior studies. ASSESSMENT: Benign, BI-RAD 2 RECOMMENDATION: Routine screening mammogram of both breasts in 1 year.
== END | disposition home or self-care (01) ==
LOC: RADMAMWWP 14:20
PROVIDERS: ATTEND Pediatrics
DX: Z12.31 Encounter for screening mammogram for malignant neoplasm of breast (principal); Z80.3 Family history of malignant neoplasm of breast; Z78.0 Asymptomatic menopausal state; R93.7 Abnormal findings on diagnostic imaging of other parts of musculoskeletal system
CPT/HCPCS: 77067

== ENCOUNTER → 2021-05-05 | Outpatient (CLI) | payer OTHER ==
[2021-05-05 14:22] LABS: African American GFR (CKD) >90 (>60 ml/min/1.73 sqM); Blood Urea Nitrogen 12 mg/dL (7-17); Non-African American GFR(CKD) >90 (>60 ml/min/1.73 sqM)
--- NOTE | 2021-05-05 15:10 | CT ---
EXAMINATION TYPE: CT chest w con DATE OF EXAM: 05/05/2021 COMPARISON: Bilateral clavicle x-ray March 22, 2021 HISTORY: Left clavicle abnormality. Recent abnormal x-ray. CT DLP: 327.9 mGycm. Automated Exposure Control for Dose Reduction was Utilized. TECHNIQUE: CT scan of the thorax is performed following with IV Contrast, patient injected with 100 mL of Isovue M300. FINDINGS: LUNGS: Overall mosaic attenuation to the lungs bilaterally. Additional focal linear scarring and/or a telectasis in the lung bases greatest anteriorly. No pleural effusion or pneumothorax seen. MEDIASTINUM: There is cardiomegaly. No pericardial effusion. No greater than 1 cm hilar or mediastina l lymph nodes. OTHER: Exaggerated thoracic curvature with kyphosis with mild to moderate multilevel spurring. Visual ized portion of bilateral clavicles appear symmetric and unremarkable particular attention to the pro ximal left clavicle area of x-ray concern. There is asymmetric narrowing and subchondral cystic ordoñez e of the right sternoclavicular joint. Moderate to severe glenohumeral joint arthropathy bilaterally is present. IMPRESSION: Cardiomegaly with mosaic attenuation could reflect mild underlying edema. Correlate for C HF exacerbation. No suspicious clavicular lesion or abnormality.
== END | disposition home or self-care (01) ==
LOC: RADCTMAIN 13:39
PROVIDERS: ATTEND Pediatrics
DX: R91.8 Other nonspecific abnormal finding of lung field (principal); I51.7 Cardiomegaly
CPT/HCPCS: 82565; 84520; 71260; 36415; Q9967

== ENCOUNTER → 2022-03-24 | Outpatient (CLI) | payer MEDICARE ==
--- NOTE | 2022-03-27 09:42 | MM ---
Reason for Exam: Screening (asymptomatic). Last screening mammogram was performed 12 month(s) ago. Patient History: Menarche at age 13. Patient has no children. Postmenopausal. Maternal aunt had breast cancer, age 50. Risk Values: May 5 year model risk: 1.9%. NCI Lifetime model risk: 6.7%. Prior Study Comparison: 06/12/2018 Bilateral Screening Mammogram, [facility]. 06/27/2019 Bilateral Screening Mammogram, [facility]. 03/22/2021 Bilateral Screening Mammogram, [facility]. Tissue Density: The breast tissue is heterogeneously dense. This may lower the sensitivity of mammography. Findings: Analyzed By CAD. There are benign-appearing round and linear calcifications redemonstrated throughout both breasts more numerous in the right breast versus left breast similar to prior studies. There is no suspicious group of microcalcifications or new suspicious mass in either breast. Overall Assessment: Benign, BI-RAD 2 Management: Screening Mammogram of both breasts in 1 year. A clinical breast exam by your physician is recommended on an annual basis and results should be correlated with mammographic findings. Electronically signed and approved by: Erasto Barcenas M.D.
== END | disposition home or self-care (01) ==
LOC: RADMAMWWP 10:21
PROVIDERS: ATTEND Pediatrics
DX: Z12.31 Encounter for screening mammogram for malignant neoplasm of breast (principal); Z78.0 Asymptomatic menopausal state; Z80.3 Family history of malignant neoplasm of breast
CPT/HCPCS: 77063; 77067

== ENCOUNTER → 2022-10-13 | Outpatient (CLI) | payer MEDICARE ==
--- NOTE | 2022-10-13 14:42 | NM ---
EXAMINATION TYPE: NM hepatobiliary wo EF DATE OF EXAM: 10/13/2022 2:17 PM COMPARISON: CT abdomen pelvis most recent from 08/28/2022 CLINICAL INDICATION:Female, 66 years old with history of K80.20 cholelithiasis; TECHNIQUE: The patient was given 4.6 mCi of Technetium 99m-Mebrofenin as a radiotracer and multiple scintigraphic images were obtained of the abdomen. FINDINGS: Normal uptake of radiotracer was identified within the liver within 5 minutes with excretion into the hepatic and common biliary ducts within a minutes. There was normal progressive washout of the liver over the course of the study. Radiotracer uptake within the gallbladder at 18 minutes as well as sma ll bowel activity was identified at 16 minutes. IMPRESSION: 1. Normal hepatobiliary scan.
== END | disposition home or self-care (01) ==
LOC: RADNMMAIN 12:33
PROVIDERS: ATTEND Pediatrics
DX: K80.20 Calculus of gallbladder without cholecystitis without obstruction (principal)
CPT/HCPCS: 78226; A9537

== ENCOUNTER → 2023-05-15 | Outpatient (CLI) | payer MEDICARE ==
--- NOTE | 2023-05-16 20:14 | MM ---
Reason for Exam: Screening (asymptomatic). Last mammogram was performed 1 year(s) and 2 month(s) ago. Patient History: Menarche at age 13. Patient has no children. Postmenopausal. Maternal aunt had breast cancer, age 50. Risk Values: May 5 year model risk: 1.9%. NCI Lifetime model risk: 6.4%. Prior Study Comparison: 06/27/2019 Bilateral Screening Mammogram, [facility]. 03/22/2021 Bilateral Screening Mammogram, [facility]. 03/24/2022 Bilateral MG 3D screening mammo w/cad, [facility]. Tissue Density: The breast tissue is heterogeneously dense. This may lower the sensitivity of mammography. Findings: Analyzed By CAD. Bilateral benign secretory calcifications. Chronic nodularity lateral aspect of the left breast. There is no suspicious group of microcalcifications or new suspicious mass in either breast. Overall Assessment: Benign, BI-RAD 2 Management: Screening Mammogram of both breasts in 1 year. . Patient should continue monthly self-breast exams. A clinical breast exam by your physician is recommended on an annual basis. This exam should not preclude additional follow-up of suspicious palpable abnormalities. Note on May scores and lifetime risk: 1. A May score greater than 3% is considered moderate risk. If this is the case, consider specialist referral to assess eligibility for a risk reducing agent. 2. If overall lifetime risk for the development of breast cancer is 20% or higher, the patient may qualify for future screening with alternating mammogram and breast MRI. Electronically signed and approved by: Karolina Jean M.D. Radiologist
== END | disposition home or self-care (01) ==
LOC: RADMAMWWP 15:43
PROVIDERS: ATTEND Pediatrics
DX: Z12.31 Encounter for screening mammogram for malignant neoplasm of breast (principal); Z78.0 Asymptomatic menopausal state; Z80.3 Family history of malignant neoplasm of breast
CPT/HCPCS: 77063; 77067

== ENCOUNTER → 2024-06-13 | Outpatient (CLI) | payer MEDICARE ==
--- NOTE | 2024-06-15 04:17 | MM ---
Reason for Exam: Screening (asymptomatic). Last mammogram was performed 1 year(s) and 1 month(s) ago. Patient History: Menarche at age 13. Patient has no children. Postmenopausal. Maternal aunt had breast cancer, age 50. Risk Values: May 5 year model risk: 1.9%. NCI Lifetime model risk: 6.2%. Prior Study Comparison: 03/22/2021 Bilateral Screening Mammogram, [facility]. 03/24/2022 Bilateral MG 3D screening mammo w/cad, [facility]. 05/15/2023 Bilateral MG 3D screening mammo w/cad, [facility]. Tissue Density: There are scattered areas of fibroglandular density. Findings: Analyzed By CAD. Pattern appears stable. Scattered benign calcifications are present. No significant interval change is evident. No suspicious groups of microcalcifications, spiculated or lobular masses, architectural distortion or other secondary signs of malignancy are mammographically apparent. Overall Assessment: Benign, BI-RAD 2 Management: Screening Mammogram of both breasts in 1 year. A negative mammogram report should not preclude additional follow up of suspicious palpable abnormalities. Patient should continue monthly self breast exam. A clinical breast exam by your physician is recommended on an annual basis and results should be correlated with mammographic findings. Note on May scores and lifetime risk: 1. A May score greater than 3% is considered moderate risk. If this is the case, consider specialist referral to assess eligibility for a risk reducing agent. 2. If overall lifetime risk for the development of breast cancer is 20% or higher, the patient may qualify for future screening with alternating mammogram and breast MRI. [facility], , 06/15/2024 4:14 AM. Electronically signed and approved by: Valeriy Barnard D.O. Radiologis
== END | disposition home or self-care (01) ==
LOC: RADMAMWWP 14:02
PROVIDERS: ATTEND Pediatrics
DX: Z12.31 Encounter for screening mammogram for malignant neoplasm of breast (principal); R92.323 Mammographic fibroglandular density, bilateral breasts; Z78.0 Asymptomatic menopausal state; Z80.3 Family history of malignant neoplasm of breast
CPT/HCPCS: 77063; 77067